=== PATIENT | female | born 1930 | race Caucasian/White ===

== ENCOUNTER → 2017-08-19 | Outpatient (CLI) | payer MEDICARE, OTHER ==
--- NOTE | 2017-08-19 12:29 | RADIOLOGY REPORT (SQ) ---
EXAM DESCRIPTION: U/S RETROPERITON (RENAL/AORTA) COMPLETED DATE/TIME: 08/19/2017 11:06 am REASON FOR STUDY: MICROSCOPIC HEMATURIA (R31.29) R31.29 OTHER MICROSCOPIC HEMATURIA COMPARISON: None. TECHNIQUE: Dynamic and static grayscale images acquired of the kidneys and bladder and recorded on P ACS. Additional selected color Doppler and spectral images recorded. LIMITATIONS: None. FINDINGS: RIGHT KIDNEY: The right kidney measured 8.0 cm in length. No focal masses. No hydronephr osis. LEFT KIDNEY: The left kidney measures 10.3 cm in length. Echogenicity is normal. No masses or hydr onephrosis. BLADDER: Incompletely distended. OTHER FINDINGS: No other significant finding. IMPRESSION: The right kidney is smaller than the left as described. This may be due to body habitus . No focal masses. No hydronephrosis. TECHNICAL DOCUMENTATION: JOB ID: [id number] [employer]- All Rights Reserved Reading location - IP/workstation name: [email or web address]
== END ==
LOC: RAD 10:32
PROVIDERS: ATTEND Urology
DX: R31.29 Other microscopic hematuria (principal)
CPT/HCPCS: 76770